=== PATIENT | female | born 1985 | race Caucasian/White ===

== ENCOUNTER 2017-02-08 18:27 | Emergency (ER) | payer OTHER ==
[~2017-02-08] VITALS: Ht 157.5 cm; Wt 81.6 kg
[~2017-02-08 18:27] MED LIST: CLON0.5T4 PO; RANI-281 PO; ZOLP10TA2 PO
[2017-02-08 18:55] VITALS: BP_SYST 121
[2017-02-08 21:19] LABS: BILIRUBIN,URINE NEGATIVE (NEGATIVE); BLOOD, URINE 2+ (NEGATIVE); CLARITY/URINE CLEAR (CLEAR); COLOR,URINE YELLOW (YELLOW); GLUCOSE,URINE NEGATIVE (NEGATIVE); KETONES,URINE TRACE (NEGATIVE); LEUKOCYTE ESTERASE ,URINE 1+ (NEGATIVE); NITRITE, URINE NEGATIVE (NEGATIVE); PH,URINE 5.5 (5.0-8.0); PROTEIN URINE NEGATIVE (NEGATIVE); UROBILINOGEN,URINE 0.2 (0.2-1.0)
[2017-02-08 21:39] LABS: BACTERIA,URINE FEW /HPF (None Seen); WBC,URINE 20-50 /HPF (0-3)
[2017-02-08 21:40] LABS: MUCUS,URINE 2+ /LPF (None Seen)
[2017-02-08] MEDS ORDERED: KETOROLAC TROMETHAMINE 60 MG/2 ML VIAL IM ONE (22:15)
[2017-02-08 23:00] VITALS: BP_SYST 121
== END 2017-02-08 23:00 | disposition home or self-care (01) ==
LOC: SED 18:27
DX: N39.0 Urinary tract infection, site not specified (principal); M54.2 Cervicalgia; J45.909 Unspecified asthma, uncomplicated; Z90.49 Acquired absence of other specified parts of digestive tract; Z88.5 Allergy status to narcotic agent
CPT/HCPCS: 81000; 81025; 87086; 96372; 99284; J1885